=== PATIENT | female | born 1950 | race Asian ===

== ENCOUNTER → 2016-10-23 | Outpatient (CLI) | payer MEDICARE, MEDICAID ==
[~2016-10-23] MED LIST: ALLO300T PO; DICL112S2 TP; LOSA100T6 PO; METF500T4 PO; RANI150T4 PO; SIMV40TA3 PO
== END | disposition home or self-care (01) ==
LOC: CFH 10:00
PROVIDERS: ATTEND Nurse Practitioner Family
DX: R10.31 Right lower quadrant pain (principal)
CPT/HCPCS: 74177; 82565

== ENCOUNTER 2020-03-23 08:57 | Outpatient (CLI) | payer MEDICARE, MEDICAID ==
[~2020-03-23 08:57] MED LIST changes: +LOSA100T14 PO; -LOSA100T6 PO; +METF500T17 PO; -METF500T4 PO; +SIMV40TA20 PO; -SIMV40TA3 PO
== END 2020-03-23 23:59 | disposition home or self-care (01) ==
LOC: CFH 08:57 → CVU 23:59
PROVIDERS: ATTEND Internal Medicine Cardiovascular Disease
DX: I08.8 Other rheumatic multiple valve diseases (principal); I10 Essential (primary) hypertension; R07.89 Other chest pain
CPT/HCPCS: 78452; 93017; 93306; 93356; A9502